=== PATIENT | male | born 1985 | race Asian ===

== ENCOUNTER 2021-12-04 15:08 | Emergency (ER) | payer OTHER ==
[~2021-12-04] VITALS: Ht 167.6 cm; Wt 81.0 kg
[2021-12-04 15:42] VITALS: BP 157/86
[2021-12-04] MEDS ORDERED: bacitracin 15gm ointment TP ONE (16:00)
== END 2021-12-04 16:24 | disposition home or self-care (01) ==
LOC: EDBD 15:09 → ER 15:09
DX: S91.311A Laceration without foreign body, right foot, initial encounter (principal); W26.0XXA Contact with knife, initial encounter; Y93.89 Activity, other specified; Y92.89 Other specified places as the place of occurrence of the external cause; Y99.8 Other external cause status
CPT/HCPCS: 12001; 99282